=== PATIENT | female | born 1955 | race Caucasian/White ===

== ENCOUNTER 2025-01-20 10:57 | Emergency (ER) | payer MEDICARE, OTHER, SELFPAY ==
[2025-01-20 11:01] VITALS: BP 138/72
[2025-01-20 12:15] VITALS: BP 107/76
[2025-01-20 12:24] LABS: Hematocrit 43.5 % (37.0-47.0); Hemoglobin 14.4 g/dL (12.0-16.0); Mean Corp Hgb Conc. 33.1 g/dL (33.0-37.0); Mean Corpuscular Volume 93.3 fL (81.0-99.0); Nucleated Red Blood Cells % 0 %; Platelet Count 225 10^3/uL (130-400); Red Cell Dist. Width 12.7 % (11.5-14.5); Urine Character Clear (Clear)
[2025-01-20 12:42] LABS: ALT (SGPT) 16 U/L (0-35); AST (SGOT) 17 U/L (14-36); Albumin 4.2 g/dl (3.5-5.0); Alkaline Phosphatase 71 U/L (38-126); Blood Urea Nitrogen 20 mg/dl (7-17); Calcium 9.7 mg/dl (8.4-10.2); Carbon Dioxide 28 mmol/L (22-30); Chloride 110 mmol/L (98-107); Glucose 64 mg/dl (70-99); Lipase 181 U/L (23-300); Potassium 4.1 mmol/L (3.5-5.1); Sodium 141 mmol/L (135-145); Total Protein 6.7 g/dl (6.3-8.2); eGFR > 60.00
[2025-01-20 12:52] LABS: Troponin I < 0.012 ng/ml
[2025-01-20 13:05] LABS: Urine Red Blood Cell 0-2 /HPF (0-2)
--- NOTE | 2025-01-20 15:42 | ED.GENMED ---
History of Present Illness
General
Chief Complaint: Flank Pain
Source: patient
Exam Limitations: none
Time Seen by Provider: 01/20/25 11:13
Nursing documentation reviewed up to this point in time: agreed with
History of Present Illness
History of Present Illness:
see MDM
Past History
Past History
ED Past Medical History: Hypothyroidism and Other (Osteopenia)
ED Past Surgical History: Tonsilectomy and Other
Social History
Tobacco: Non-smoker
Review of Systems
Review of Systems
Allergies reviewed?: Yes
All Other Systems: Not applicable
Phy Exam
Physical Exam
Physical Exam:
GENERAL: Alert
Neck: supple
CARDIAC: Regular rate and rhythm .
LUNGS: Clear breath sounds bilaterally, no acute respiratory distress, no wheezes/rales/rhonchi
ABDOMEN: Soft, normal bowel sounds, nondistended, no abdominal tednerness, neg rangel's sign no guarding, no rebound, neg rangel's
back: nomnral inspection
no swelling
no rash
no signfiicant tendenress, full ROM
NEUROLOGICAL: Alert and oriented, no focal neuro deficits
SKIN: Warm and dry, skin intact.
PSYCH: Normal and appropriate interaction.
Course
Orders/Labs/Results
Orders:
Orders
01/20/25 10:59
EKG [Electrocardiogram (*1)] Urgent
Reason for Study: Chest Pain
EKG- Treatment ONCE
01/20/25 12:04
Complete Blood Count/With Diff Urgent
Comprehensive Metabolic Panel Urgent
Lipase Urgent
Troponin I Urgent
Urinalysis Reflex To Culture Urgent
Date Specimen was Collected: 01/20/25
Time Specimen was Collected: 11:54
Urine Microscopic Reflex Cult Urgent
Urine Culture Urgent
DURAN Source: U
Specimen Description:
Date Specimen was Collected: 01/20/25
Time Specimen was Collected: 11:54
01/20/25 12:34
CR Chest - 2 Views Urgent
Comment:
Reason For Exam: right sided back pain
01/20/25 12:48
CT Abd/Pel (IV only)-DH only Urgent
Comment:
Reason For Exam: R flank pain
01/20/25 14:19
CT Chest PE Study Urgent
Comment:
Reason For Exam: pleuritic pain
01/20/25 16:30
Fosfomycin [Monurol] 3 gm PO ONCE ONE
Abnormal Lab Results
01/20/25
12:04
Chloride 110 H mmol/L
(98-107)
BUN 20 H mg/dl
(7-17)
Glucose 64 L mg/dl
(70-99)
Leukocyte Esterase Rfl 2+ A
(Negative)
Urine Bacteria (Reflex) Few A
(Negative)
01/20/25 12:04
01/20/25 12:04
Vital Signs
Initial and Last Documented VS:
Initial Vital Signs
Temp Pulse Resp BP Pulse Ox
36.9 C 57 16 138/72 98
01/20/25 11:01 01/20/25 11:01 01/20/25 11:01 01/20/25 11:01 01/20/25 11:01
Last Documented Vital Signs
Temp Pulse Resp BP Pulse Ox
36.9 C 63 17 110/71 98
01/20/25 11:01 01/20/25 16:30 01/20/25 16:30 01/20/25 16:12 01/20/25 16:30
MDM/Problems Addressed
Differential Diagnosis Includes:
see MDM
MDM/Problems Addressed:
Note:
CHIEF COMPLAINT(S)
Right-sided back pain.
HISTORY OF PRESENT ILLNESS
The patient is a 69-year-old female who presents with right-sided back pain, which began this morning after taking a shower. She reports the pain location as just below the right shoulder blade. The pain intensity was initially a 10 out of 10 but
has decreased to a 3 out of 10 currently. The pain is not radiating and does not involve the arm or abdomen. She denies any associated chest pain, shortness of breath, fever, or chills. She mentioned a concern about her heart initially but is
reassured by the absence of typical cardiac symptoms. The patient experienced lightheadedness and nausea which caused her concern and prompted seeking medical attention. She took Tylenol at 8 AM for the pain, which provided minimal relief.
PAST MEDICAL AND SURIGICAL HISTORY
The patient has a past surgical history of tonsillectomy and a partial thyroidectomy.
CHRONIC MEDICAL CONDITIONS SIGNIFICANTLY AFFECTING CARE
The patient takes levothyroxine for thyroid management and is on an immune suppressant for vitiligo.
SOCIAL DETERMINANTS AFFECTING HEALTH
The patient does not smoke.
ALLERGIES
The patient reports an intolerance to nonsteroidal anti-inflammatory drugs due to a previous gastrointestinal bleed.
MEDICATIONS
- Levothyroxine
- Immune suppressant for vitiligo
REVIEW OF SYSTEMS
- Constitutional: Lightheadedness, nausea experienced earlier
- Musculoskeletal: Right-sided back pain below the shoulder blade
- Cardiovascular: Denies chest pain, shortness of breath
- Respiratory: No shortness of breath
- Gastrointestinal: No nausea at present
PHYSICAL EXAM
- Musculoskeletal: Tenderness below the right shoulder blade
- Vitals reviewed
PROBLEM LIST
Acute:
- Right-sided back pain
- Lightheadedness and nausea
PLAN
- Perform blood tests
- Urinalysis to check for blood that may indicate a kidney stone
- Imaging, depending on blood test results, with potential ultrasound of the liver or kidney
- Check cardiac markers to rule out cardiac issues despite low suspicion
DIFFERENTIAL DIAGNOSIS
The Differential Diagnosis includes, in no particular order and is not limited to:
1. Musculoskeletal pain
2. Kidney stone
3. Gallbladder disease
4. Intercostal neuralgia
5. Pleurodynia
6. Pneumonia (although unlikely given lack of respiratory symptoms)
7. Pancreatitis
8. Herpes Zoster (without rash)
9. Aortic dissection (less likely without severe agitation or chest involvement)
10. Cardiac ischemia (very unlikely but to be ruled out with enzyme markers)
CARE-UPDATE
01/20/25 - 14:09
The patients urine analysis revealed the presence of bacteria and leukocytes; however, theres no blood, making a kidney stone diagnosis less likely. A CT scan has been ordered to assess the kidney and surrounding area. Heart enzymes and liver
function appear normal, and chest examination reveals no fluid. Gallstones or a possible kidney stone remain on the differential diagnosis. Theres consideration of shingles due to localized nerve discomfort, but no rash is present yet. Patient
experienced significant pain earlier managed with ibuprofen, but currently rates pain as tolerable and opted against additional medication. A chest CT with contrast will also be conducted to ensure comprehensive evaluation, including assessment of
the lungs. Initial Tylenol arthritis taken with noted dosage and frequency.
CARE-UPDATE
01/20/25 - 16:27
Patients blood work and imaging are largely normal, with some findings in the urine test showing white cells, mucus, and bacteria, but no symptoms of a urinary tract infection; thus, one dose of an antibiotic is recommended as a precaution. Imaging
ruled out blood clots and showed no consolidation or pneumonia, but did reveal mild degenerative changes in the spine and a small, non-characterizable hepatic lesion. Thyroid assessment is advised due to previous medical history. Musculoskeletal
issues or possible rash introduction are suspected for the pain, with instructions to contact the family doctor if a rash develops. The patients cardiac evaluation returned normal, and given the history of GI bleed, NSAIDs are to be avoided,
suggesting Tylenol for pain management.
*Pulse Oximetry
SaO2: 98
Oxygen Mode of Delivery: Room air
Patient hypoxic: no (98)
*Critical Care Note
Total Time (30-74mins, 75-104mins- exclusive of procedures): Not Applicable
ED Attending Note
-
Portions of this chart may have been created with voice recognition software.� Occasional wrong word or��sound alike� substitutions may have occurred due to the inherent limitations of voice recognition software.
Discharge Plan
Departure
Patient Disposition: Home (Routine Discharge)
Date of Disposition: 01/20/25
Time of Disposition: 16:30
Patient with high blood pressure during this ER visit?: No
Condition: Fair
Covid-19: Not Applicable
Discharge Problem:
Back pain
Instructions: Upper Back Pain ED
Referrals:
Anitra Lara MD [Family Provider, Internal Medicine] - Follow up in 5-7 days
Activity Restrictions/Additional Instructions:
YOUR WORK UP HERE DOES NOT REVEAL ANY EMERGENCIES CAUSING YOUR PAIN
YOUR URINE WAS MILDLY POSITIVE AND WE GAVE YOU MONUROL TO TREAT IT JUST IN CASE
YOUR CAT SCANS WERE NEGATIVE, YOU ARE AWARE OF YOUR THYROID NODULE
WATCH FOR A RASH, WHICH COULD BE FROM SHINGLES
RETURN FOR: SEVERE PAIN, TROUBLE BREATHING, FEVER, PASSING OUT ETC
OTHERWISE SEE YOUR DOCTOR
Interventions
Interventions:
*Risk Screen - Suicide Last Done: 01/20/25 11:01
*General Assessment Last Done: 01/20/25 11:01
Discharge Date and Time
Print Language: MALAGASY
[2025-01-20 16:12] VITALS: BP 110/71
[2025-01-20] MEDS: MONUROL 3 GM PO (16:51)
== END 2025-01-20 16:35 | disposition home or self-care (01) ==
LOC: EMR 10:57
PROVIDERS: Physician Assistant; EMERGENCY PHYSICIAN Student in an Organized Health Care Education/Training Program; FAMILY PHYSICIAN Internal Medicine
DX: M54.6 Pain in thoracic spine (principal); R42 Dizziness and giddiness; R11.0 Nausea; E03.9 Hypothyroidism, unspecified; M85.80 Other specified disorders of bone density and structure, unspecified site
CPT/HCPCS: 99284; 71046; 71275; 74177; 80053; 81003; 81015; 83690; 84484; 85025; 87086; 93005; Q9967